=== PATIENT | male | born 1985 | race Caucasian/White ===

== ENCOUNTER 2019-07-30 15:29 | Emergency (ER) | payer MEDICAID, OTHER ==
[~2019-07-30] VITALS: Ht 195.6 cm; Wt 90.9 kg
[~2019-07-30 15:29] MED LIST: COROS TOP; NO HOME MEDS
[2019-07-30 15:51] VITALS: BP 138/82
[2019-07-30] MEDS ORDERED: PENI500T2 PO (16:17)
== END 2019-07-30 16:30 | disposition home or self-care (01) ==
LOC: ER 15:30
DX: K04.7 Periapical abscess without sinus (principal); Z79.899 Other long term (current) drug therapy
CPT/HCPCS: 99283